=== PATIENT | female | born 2000 | race Caucasian/White ===

== ENCOUNTER 2020-08-31 15:34 | Emergency (ER) | payer OTHER ==
[~2020-08-31] VITALS: Ht 157.5 cm; Wt 90.7 kg
[2020-08-31 16:09] LABS: ABSOLUTE NEUTROPHILS 6.1 thou/uL (1.4-8.2); EOSINOPHILS 2.2 % (0.0-3.0); HEMATOCRIT 38.6 % (37.0-47.0); HEMOGLOBIN 12.5 gm/dL (12.0-15.0); LYMPHOCYTES 26.7 % (24.0-44.0); MCH 27.6 pg (26.0-34.0); MCHC 32.3 g/dL (28.0-37.0); MCV 85.6 fL (80.0-100.0); MONOCYTES 5.4 % (1.0-8.0); PLATELET COUNT 203 thou/uL (150-400); POLYS 64.7 % (36.0-66.0); RBC 4.51 mil/uL (4.20-5.00); RDW 13.9 % (10.5-14.5); WBC 9.5 thou/uL (4.0-11.0)
[2020-08-31 16:19] LABS: CALCIUM 9.5 mg/dL (8.5-10.1); CREATININE 0.7 mg/dL (0.6-1.0); POTASSIUM 4.1 mmol/L (3.5-5.1)
[2020-08-31 16:22] LABS: ALBUMIN 3.4 g/dL (3.4-5.0); MAGNESIUM 1.6 mg/dL (1.8-2.4); TOTAL BILIRUBIN 0.2 mg/dL (0.2-1.0); TOTAL PROTEIN 7.5 g/dL (6.4-8.2)
[2020-08-31 16:34] LABS: URINE BILIRUBIN NEGATIVE (Negative); URINE BLOOD 3+ (Negative); URINE CLARITY SL CLOUDY; URINE COLOR YELLOW; URINE GLUCOSE-RANDOM* NEGATIVE (Negative); URINE KETONES NEGATIVE (Negative); URINE LEUKOCYTES-REFLEX NEGATIVE (Negative); URINE NITRITE-REFLEX NEGATIVE (Negative); URINE PROTEIN (DIPSTICK) NEGATIVE (Negative); URINE SPECIFIC GRAVITY 1.015 (1.005-1.035); URINE UROBILINOGEN 0.2 E.U./dl (0.2-1.0)
[2020-08-31 16:48] LABS: AMP/METHAMP Negative (Negative); BARBITURATES Negative (Negative); BENZODIAZEPINES Negative (Negative); COCAINE Negative (Negative); METHADONE Negative (Negative); OPIATES Negative (Negative); PCP Negative (Negative)
[2020-08-31 16:49] LABS: BACTERIA-REFLEX 1-9 Few /HPF (None Seen); CASTS None Seen /LPF (None Seen); CRYSTALS None Seen /LPF (None Seen); SQUAMOUS 4-10 Moderate /LPF (0-3); URINE WBC-REFLEX 0-5 Rare /HPF (0-5)
[2020-08-31 21:11] VITALS: BP 108/62
== END 2020-08-31 21:14 | disposition home or self-care (01) ==
LOC: ER 15:34
PROVIDERS: Physician Assistant
DX: R56.9 Unspecified convulsions (principal); Z88.8 Allergy status to other drugs, medicaments and biological substances

== ENCOUNTER → 2020-11-28 | Outpatient (CLI) | payer OTHER | LOC: MRI 09:22 | PROVIDERS: ATTEND Psychiatry & Neurology Neuromuscular Medicine | DX: R56.9 Unspecified convulsions (principal); R26.9 Unspecified abnormalities of gait and mobility ==

== ENCOUNTER → 2021-07-09 | Emergency (ER) | payer OTHER ==
--- NOTE | ~2021-07-09 | EMS ---
[address] [address] EMS Patient Care Report Name: HAILEY FORD Room #: REG JULIA Arshad#: [id number] Admission: 07/09/21 Attend Phys: Discharge: Date of : 89 Report #: [id number] THIS REPORT FOR: //name// Report Transmitted: 07/12/2021 12:00 EMS Care Summary [place], [place]/[facility] Incident [id number] @ 07/09/2021 14:14 Incident Location [id number] [facility] [address] Patient HAILEY FORD Female, 20 Years 2000 Patient Address [id number] [place] [address] [address] [place] [address] Patient History Asthma,Morbid Obesity,Bipolar II Disorder, Patient Allergies No known allergies, Patient Medications Depakote, [place], Zoloft, Haldol, Chief Complaint seizure Disposition Transported No Lights/[place] Reason Convulsions/Seizure Transported To [facility] Narrative Nurse at [facility] stated that Pt room mate and told her that Pt had a seizure and she times it and it lasted 5 minutes, Nurse did not witness seizure. Pt stated to EMS that she was told by her room mate that she has a [address] [address] EMS Patient Care Report Name: HAILEY FORD Room #: REG JULIA Arshad#: [id number] Admission: 07/09/21 Attend Phys: Discharge: Date of : [birth year] Report #: [id number] seizure that was 5 minutes long and was snoring and sleeping after the activity. Pt stated she does have a history of seizures and has been taking her medication but does not know when the last time she visited her seizure DR. Pt stated she feels good and is a GCS 15 with no other complaints noted. Pt found sitting on the bed with [employer] crew, Pt is with no signs of distress noted. Pt is post seizure that was witnessed by her room mate and was times and the seizure activity lasted 5 minutes and per Pt room mate she feel asleep. Pt is with no signs of Post ictal activity and is a GCS 15 on EMS eval of Pt. Pt is with no other complaints noted and transported to [facility] ER for evaluation and tx of seizure Activity. Pt was received by RN in ER. Initial Vitals @14:27P: 80,R: 18,BP: 116/89,Pain: 0/10,GCS: 15,Glucose: 116,SpO2: 98,Revised Trauma: 12, @14:36P: 94,R: 18,BP: 97/60,Pain: 0/10,GCS: 15,SpO2: 97,Revised Trauma: 12, Assessments @14:22MENTAL:Person Oriented,Event Oriented,Place Oriented,Time Oriented,SKIN:HEENT:Head/Face: No Abnormalities,Neck/Airway: No Abnormalities,LUNG SOUNDS:General: No Abnormalities,ABDOMEN:General: No Abnormalities,PELVIS//GI:No Abnormalities,EXTREMITIES:Capillary Refill: Left Upper: < 2 Sec,Left Arm: No Abnormalities,Right Arm: No Abnormalities,Left Leg: No Abnormalities,Right Leg: No Abnormalities,PULSE:Radial: 2+ Normal,NEURO:No Abnormalities,@14:39MENTAL:Time Oriented,Event Oriented,Person Oriented,Place Oriented,SKIN:HEENT:Head/Face: No Abnormalities,Neck/Airway: No Abnormalities,LUNG SOUNDS:General: No Abnormalities,ABDOMEN:General: No Abnormalities,PELVIS//GI:No Abnormalities,EXTREMITIES:Capillary Refill: Left Upper: < 2 Sec,Left Arm: No Abnormalities,Right Arm: No Abnormalities,Left Leg: No Abnormalities,Right Leg: No Abnormalities,PULSE:Radial: 2+ Normal,NEURO:No Abnormalities, Impression Seizures Procedures @14:22 ALS Assessment Response: UnchangedSucceeded Timeline 14:11,Call Received 14:11,Dispatch Notified 14:14,Dispatched 14:14,En Route 14:19,On Scene 14:22,At Patient [address] [address] EMS Patient Care Report Name: HAILEY FORD Room #: REG Pavithra#: [id number] Admission: 07/09/21 Attend Phys: Discharge: Date of : 89 Report #: [id number] 14:22,ALS Assessment,Response: UnchangedSucceeded, 14:27,BP: 116/89 M,PULSE: 80,RR: 18 R,SPO2: 98 Ox,ETCO2: ,B,PAIN: 0,GCS: 15, 14:31,Depart Scene 14:36,BP: 97/60 M,PULSE: 94,RR: 18 R,SPO2: 97 Ox,ETCO2: ,BG: ,PAIN: 0,GCS: 15, 14:40,At Destination 15:03,Call Closed Disclaimer v1.1 Copyright 2021 [employer] This EMS Care Summary contains data elements from the applicable legal record (which may be displayed differently). It is designed to provide pertinent information for the following purposes: continuity of care, clinical quality, and state data reporting. The complete legal record is available to ED staff and administrators of the receiving hospital in [employer] Patient Tracker. All data is provided "as is."
[2021-07-09 18:05] LABS: ABSOLUTE NEUTROPHILS 7.9 thou/uL (1.4-8.2); BASOPHILS 0.5 % (0.0-2.0); EOSINOPHILS 1.9 % (0.0-3.0); HEMATOCRIT 38.8 % (37.0-47.0); HEMOGLOBIN 12.5 gm/dL (12.0-15.0); LYMPHOCYTES 19.4 % (24.0-44.0); MCH 27.5 pg (26.0-34.0); MCHC 32.3 g/dL (28.0-37.0); MCV 85.2 fL (80.0-100.0); MONOCYTES 5.6 % (1.0-8.0); PLATELET COUNT 253 thou/uL (150-400); POLYS 72.6 % (36.0-66.0); RBC 4.56 mil/uL (4.20-5.00); RDW 14.4 % (10.5-14.5); WBC 10.9 thou/uL (4.0-11.0)
[2021-07-09 18:18] LABS: CALCIUM 9.9 mg/dL (8.5-10.1); CREATININE 0.5 mg/dL (0.6-1.0); POTASSIUM 4.1 mmol/L (3.5-5.1)
[2021-07-09 18:21] LABS: ALBUMIN 3.2 g/dL (3.4-5.0); TOTAL BILIRUBIN 0.3 mg/dL (0.2-1.0); TOTAL PROTEIN 7.6 g/dL (6.4-8.2)
[2021-07-09 22:31] VITALS: BP 113/53
== END ==
LOC: ER 14:51
PROVIDERS: Emergency Medicine
DX: R56.9 Unspecified convulsions (principal); F31.9 Bipolar disorder, unspecified; Z88.8 Allergy status to other drugs, medicaments and biological substances

== ENCOUNTER 2021-07-14 15:42 | Emergency (ER) | payer OTHER ==
[2021-07-14 16:02] LABS: ABSOLUTE NEUTROPHILS 6.6 thou/uL (1.4-8.2); BASOPHILS 0.6 % (0.0-2.0); EOSINOPHILS 2.6 % (0.0-3.0); HEMATOCRIT 38.4 % (37.0-47.0); HEMOGLOBIN 11.9 gm/dL (12.0-15.0); LYMPHOCYTES 24.5 % (24.0-44.0); MCH 27.4 pg (26.0-34.0); MCV 88.5 fL (80.0-100.0); MONOCYTES 5.8 % (1.0-8.0); PLATELET COUNT 250 thou/uL (150-400); POLYS 66.5 % (36.0-66.0); RBC 4.33 mil/uL (4.20-5.00); RDW 14.8 % (10.5-14.5); WBC 9.9 thou/uL (4.0-11.0)
[2021-07-14 16:06] LABS: CALCIUM 9.2 mg/dL (8.5-10.1); CREATININE 0.5 mg/dL (0.6-1.0); POTASSIUM 4.3 mmol/L (3.5-5.1)
[2021-07-14 16:12] LABS: ALBUMIN 3.3 g/dL (3.4-5.0); TOTAL BILIRUBIN 0.1 mg/dL (0.2-1.0); TOTAL PROTEIN 7.2 g/dL (6.4-8.2)
[2021-07-14 16:18] LABS: URINE BILIRUBIN NEGATIVE (Negative); URINE BLOOD NEGATIVE (Negative); URINE CLARITY CLOUDY; URINE COLOR YELLOW; URINE GLUCOSE-RANDOM* NEGATIVE (Negative); URINE KETONES NEGATIVE (Negative); URINE NITRITE-REFLEX NEGATIVE (Negative); URINE PROTEIN (DIPSTICK) NEGATIVE (Negative); URINE UROBILINOGEN 0.2 E.U./dl (0.2-1.0)
[2021-07-14 16:20] LABS: URINE LEUKOCYTES-REFLEX 2+ (Negative)
[2021-07-14 16:27] LABS: SQUAMOUS >10 Many /LPF (0-3)
[2021-07-14 16:29] LABS: CASTS None Seen /LPF (None Seen); CRYSTALS None Seen /LPF (None Seen); URINE RBC 1-2 Rare /HPF (NONE SEEN)
[2021-07-14] MEDS ORDERED: CEPHALEXIN500 MG PO (17:03)
[2021-07-14 18:24] VITALS: BP 114/45
== END 2021-07-14 18:24 | disposition home or self-care (01) ==
LOC: ER 15:42
PROVIDERS: Emergency Medicine
DX: N39.0 Urinary tract infection, site not specified (principal); Z20.822 Contact with and (suspected) exposure to COVID-19; J45.909 Unspecified asthma, uncomplicated; Z88.8 Allergy status to other drugs, medicaments and biological substances